=== PATIENT | male | born 1965 | race Caucasian/White ===

== ENCOUNTER → 2020-02-01 11:12 | Outpatient (BNVA) | payer OTHER, SELFPAY | PROVIDERS: Visit Provider Physician Assistant Medical | DX: S46.211A Strain of muscle, fascia and tendon of other parts of biceps, right arm, initial encounter (principal); W18.39XA Other fall on same level, initial encounter | CPT/HCPCS: 73070; 99203 ==

== ENCOUNTER 2020-02-10 13:32 | Outpatient (REF) | payer OTHER, SELFPAY ==
--- NOTE | 2020-02-10 13:45 | MR_ITS ---
EXAMINATION: MR ELBOW WITHOUT CONTRAST, RIGHT CLINICAL INFORMATION: Distal biceps tear, partial versus complete COMPARISON: None TECHNIQUE: MR of the elbow without contrast was performed on a 1.5 Kat axial scanner. FINDINGS: BONE AND JOINTS: No evidence of fracture. No suspicious marrow signal changes. No focal cartilage defects identified. Small effusion. No discrete loose body is identified. TENDONS AND MUSCLES: There is mild increased T2 signal in the distal biceps tendon, which could reflect strain/interstitial partial tear, tendinosis, or a combination of these. No measurable tendon defect or tendon retraction is seen. Brachialis, triceps tendons are intact. Common flexor and common extensor tendon origins are intact. LIGAMENTS: Intact ULNAR NERVE: Within normal limits MR/MR elbow RT wo con IMPRESSION: 1. Findings in the distal biceps tendinosis could represent strain/interstitial partial tear, tendinosis, or a combination of these. 2. No evidence of acute osseous abnormality.
== END 2020-02-10 13:33 | disposition home or self-care (01) ==
LOC: HO.MRI 13:32
PROVIDERS: PCP Internal Medicine; Visit Provider Internal Medicine
DX: S46.211A Strain of muscle, fascia and tendon of other parts of biceps, right arm, initial encounter (principal); X50.0XXA Overexertion from strenuous movement or load, initial encounter
CPT/HCPCS: 73221